=== PATIENT | male | born 1970 | race Two or more races ===

== ENCOUNTER 2024-10-10 01:22 | Emergency (ER) | payer OTHER ==
[~2024-10-10] VITALS: Ht 182.9 cm; Wt 136.1 kg
[2024-10-10] MEDS ORDERED: KETOROLAC TROMETHAMINE 30 MG VIAL IV STA (03:56)
[2024-10-10] MEDS ORDERED: CLINDAMYCIN PHOSPHATE 150 MG/ML (900mg) IV STA (03:57)
[2024-10-10] MEDS ORDERED: FLUMAZENIL 0.5 MG/5 ML ML IV STA (04:10)
[2024-10-10] MEDS ORDERED: NALOXONE HCL 0.4 MG/ML AMPUL IV STA (04:10)
[2024-10-10 04:48] LABS: BILIRUBIN TOTAL 3.88 mg/dL (0.3-1.2); CALCIUM 8.9 mg/dL (8.5-10.1); CREATININE SERUM 0.99 mg/dL (0.70-1.30); GFR 79.38; GLOBULINA 4.5 G/DL (2.4-3.5); POTASSIUM 3.42 mEq/L (3.5-5.1); TOTAL PROTEIN 7.5 gm/dL (6.4-8.2)
[2024-10-10 05:10] LABS: HEMATOCRIT 38.9 % (39.0-48.0); HEMOGLOBIN 13.9 g/dL (13-16.00); MEAN CORPUSCULAR HEMOGLOBIN 30.8 pg (27.00-32.0); MEAN CORPUSCULAR HGB CONC 35.8 g/dl (32.0-36.0); RED BLOOD COUNT 4.52 M/uL (4.00-6.00); RED CELL DISTRIBUTION WIDTH 15.9 % (11.5-14.5)
[2024-10-10 05:26] LABS: PLATELET COUNT 82 K/uL (150-450)
[2024-10-10 06:11] LABS: ERYTHROCYTE SEDIMENTATION RATE 38 mm/hr
[2024-10-10 06:24] LABS: COCAINE POSITIVE (NEGATIVE); METHADONE NEGATIVE (NEGATIVE); OPIATES POSITIVE (NEGATIVE); THC ( Cannabinoids) NEGATIVE (NEGATIVE)
== END 2024-10-10 13:13 | disposition home or self-care (01) ==
LOC: ER 01:24
DX: L03.116 Cellulitis of left lower limb (principal); L03.115 Cellulitis of right lower limb

== ENCOUNTER 2024-10-13 04:06 | Emergency (ER) | payer BC ==
[~2024-10-13] VITALS: Ht 182.9 cm; Wt 108.0 kg
[2024-10-13] MEDS ORDERED: KETOROLAC TROMETHAMINE 30 MG VIAL IV STA (06:30)
[2024-10-13] MEDS ORDERED: CLINDAMYCIN PHOSPHATE 150 MG/ML (900mg) IV STA (06:31)
[2024-10-13] MEDS ORDERED: OxyCODONE HCL/APAP UD (PERCOCET) PO STA (06:31)
[2024-10-13 08:20] LABS: HEMATOCRIT 35.2 % (39.0-48.0); HEMOGLOBIN 12.2 g/dL (13-16.00); MEAN CELL VOLUME 85.1 fL (80.0-100.00); MEAN CORPUSCULAR HEMOGLOBIN 29.5 pg (27.00-32.0); MEAN CORPUSCULAR HGB CONC 34.7 g/dl (32.0-36.0); RED BLOOD COUNT 4.14 M/uL (4.00-6.00); RED CELL DISTRIBUTION WIDTH 15.5 % (11.5-14.5)
[2024-10-13 08:33] LABS: CALCIUM 8.5 mg/dL (8.5-10.1); CREATININE SERUM 0.66 mg/dL (0.70-1.30); GFR 126.74; POTASSIUM 3.46 mEq/L (3.5-5.1)
[2024-10-13 08:40] LABS: ERYTHROCYTE SEDIMENTATION RATE 35 mm/hr
[2024-10-13 09:42] LABS: PLATELET COUNT 61 K/uL (150-450)
[2024-10-14] MEDS ORDERED: NADOLOL20 MG PO (23:50)
[2024-10-14] MEDS ORDERED: CARVEDILOL3.125 M1 PO (23:50)
[2024-10-14] MEDS ORDERED: LORAZEPAM0.5 MG PO (23:51)
== END 2024-10-13 10:19 | disposition home or self-care (01) ==
LOC: ER 04:06
DX: L03.116 Cellulitis of left lower limb (principal)

== ENCOUNTER 2024-10-14 23:11 | Inpatient (IN) | payer BC ==
[~2024-10-14] VITALS: Ht 152.4 cm; Wt 103.4 kg
[2024-10-14] MEDS ORDERED: CARVEDILOL3.125 M1 PO (23:50)
[2024-10-14] MEDS ORDERED: NADOLOL20 MG PO (23:50)
[2024-10-14] MEDS ORDERED: LORAZEPAM0.5 MG PO (23:51)
[2024-10-15] MEDS ORDERED: KETOROLAC TROMETHAMINE 30 MG VIAL IV STA (03:52)
[2024-10-15] MEDS ORDERED: CEFTRIAXONE SODIUM 2,000 MG VIAL IV STA (03:52)
[2024-10-15 05:07] LABS: URINE APPEARANCE Clear; URINE BILIRRUBIN Negative (NEGATIVE); URINE BLOOD Negative; URINE COLOR Dark Yellow; URINE GLUCOSE Negative (NEGATIVE); URINE KETONE Negative (NEGATIVE); URINE LEUKOCYTE Negative; URINE NITRATE Negative; URINE PROTEIN Negative (NEGATIVE)
[2024-10-15 05:11] LABS: URINE BACTERIA 7.5 uL (0.0-1933); URINE EPITHELIAL CELLS 4.7 uL (0.0-38.8); URINE RBC 9.3 uL (0.0-20.8); URINE WBC 3.2 uL (0.0-23.2)
[2024-10-15 05:21] LABS: URINE CAST 0.15 uL (0.0-1.40)
[2024-10-15 05:26] LABS: HEMATOCRIT 38.8 % (39.0-48.0); HEMOGLOBIN 13.7 g/dL (13-16.00); MEAN CELL VOLUME 85.1 fL (80.0-100.00); MEAN CORPUSCULAR HEMOGLOBIN 30.1 pg (27.00-32.0); MEAN CORPUSCULAR HGB CONC 35.4 g/dl (32.0-36.0); PLATELET COUNT 103 K/uL (150-450); RED BLOOD COUNT 4.55 M/uL (4.00-6.00); RED CELL DISTRIBUTION WIDTH 15.1 % (11.5-14.5)
[2024-10-15 05:41] LABS: INR 1.19; PARTIAL THROMBOPLASTIN TIME 32.2 SECONDS (22.0-34.0); PROTHROMBIN TIME 12.8 SECONDS (9.0-11.5)
[2024-10-15 05:45] LABS: BILIRUBIN TOTAL 2.02 mg/dL (0.3-1.2); CALCIUM 8.8 mg/dL (8.5-10.1); CREATININE SERUM 0.83 mg/dL (0.70-1.30); GFR 97.29; GLOBULINA 5.2 G/DL (2.4-3.5); TOTAL PROTEIN 8.2 gm/dL (6.4-8.2)
[2024-10-15 05:48] LABS: POTASSIUM 2.73 mEq/L (3.5-5.1)
[2024-10-15 08:41] VITALS: BP 109/71
[2024-10-15] MEDS ORDERED: CEFTRIAXONE SODIUM 2,000 MG in 0.9 % SODIUM CHLORIDE 100 ML IV SCH (10:25)
[2024-10-15] MEDS ORDERED: PANTOPRAZOLE SODIUM 40 MG/VIAL VIAL IV SCH (10:25)
[2024-10-15] MEDS ORDERED: CARVEDILOL 3.125 MG TABLET PO SCH (10:27)
[2024-10-15] MEDS ORDERED: 0.9 % SODIUM CHLORIDE 1,000 ML IV SCH (10:30)
[2024-10-15] MEDS ORDERED: POTASSIUM CHLORIDE IN WATER 100 ML IV NR (10:30)
[2024-10-15] MEDS ORDERED: ACETAMINOPHEN 500 MG GEL..CAP PO PRN (10:30)
[2024-10-15] MEDS ORDERED: MORPHINE SULFATE 2 MG/ML CARTRIDGE IV PRN (10:30)
[2024-10-15 12:37] LABS: ALBUMIN 2.8 gm/dL (3.4-5.0); BILIRUBIN TOTAL 1.61 mg/dL (0.3-1.2); BILIRUBIN,CONJUGATED 1.02 mg/dL (0.0-0.2); BILIRUBIN,UNCONJUGATED 0.59 mg/dL (0.0-0.6); TOTAL PROTEIN 7.3 gm/dL (6.4-8.2)
[2024-10-15 12:39] LABS: C-REACTIVE PROTEIN 2.98 MG/DL (0.00-0.29)
[2024-10-15 17:44] VITALS: BP 102/71
[2024-10-15 17:45] VITALS: BP 102/71
[2024-10-16 02:28] VITALS: BP 101/60
[2024-10-16 05:19] LABS: ALBUMIN 2.2 gm/dL (3.4-5.0); BILIRUBIN TOTAL 1.16 mg/dL (0.3-1.2); CALCIUM 7.8 mg/dL (8.5-10.1); CREATININE SERUM 0.75 mg/dL (0.70-1.30); GFR 109.36; GLOBULINA 3.6 G/DL (2.4-3.5); POTASSIUM 3.15 mEq/L (3.5-5.1); TOTAL PROTEIN 5.8 gm/dL (6.4-8.2)
[2024-10-16 08:31] VITALS: BP 95/50
[2024-10-16] MEDS ORDERED: MAGNESIUM SULFATE IN WATER 50 ML IV NR (12:15)
[2024-10-16] MEDS ORDERED: LACTULOSE 20 G/30 ML BLIST.PACK PO SCH (13:00)
[2024-10-16] MEDS ORDERED: POTASSIUM CHLORIDE IN WATER 40 MEQ/100 ML PIGGYBAG IV SCH (13:00)
[2024-10-16] MEDS ORDERED: DOXYCYCLINE HYCLATE 100 MG in 0.9 % SODIUM CHLORIDE 250 ML IV SCH (13:08)
[2024-10-16] MEDS ORDERED: SPIRONOLACTONE 50 MG TABLET PO SCH (13:09)
[2024-10-16 17:13] VITALS: BP 110/65
[2024-10-17 03:05] VITALS: BP 136/84; O2SAT 95
[2024-10-17 08:27] LABS: BILIRUBIN TOTAL 1.12 mg/dL (0.3-1.2); CALCIUM 7.6 mg/dL (8.5-10.1); CREATININE SERUM 0.57 mg/dL (0.70-1.30); GFR 150.11; GLOBULINA 3.6 G/DL (2.4-3.5); POTASSIUM 4.61 mEq/L (3.5-5.1); TOTAL PROTEIN 5.6 gm/dL (6.4-8.2)
[2024-10-17 09:19] VITALS: BP 116/66; O2SAT 97
[2024-10-17 16:03] VITALS: BP 116/76; O2SAT 94
[2024-10-18 09:08] VITALS: BP 101/73; O2SAT 97
[2024-10-18 16:16] VITALS: BP 101/66; O2SAT 97
[2024-10-19 00:30] VITALS: BP 108/68; O2SAT 95
[2024-10-19 06:19] LABS: HEMOGLOBIN 11.8 g/dL (13-16.00); MEAN CELL VOLUME 84.8 fL (80.0-100.00); MEAN CORPUSCULAR HEMOGLOBIN 30.3 pg (27.00-32.0); MEAN CORPUSCULAR HGB CONC 35.8 g/dl (32.0-36.0); RED BLOOD COUNT 3.89 M/uL (4.00-6.00); RED CELL DISTRIBUTION WIDTH 15.7 % (11.5-14.5)
[2024-10-19 06:53] LABS: ALBUMIN 2.2 gm/dL (3.4-5.0); BILIRUBIN TOTAL 1.53 mg/dL (0.3-1.2); CALCIUM 8.3 mg/dL (8.5-10.1); CREATININE SERUM 0.53 mg/dL (0.70-1.30); GFR 163.26; GLOBULINA 4.5 G/DL (2.4-3.5); POTASSIUM 4.24 mEq/L (3.5-5.1); TOTAL PROTEIN 6.7 gm/dL (6.4-8.2)
[2024-10-19 07:44] LABS: PLATELET COUNT 70 K/uL (150-450)
[2024-10-19 08:19] VITALS: BP 103/50; O2SAT 97
[2024-10-19 17:07] VITALS: BP 102/63; O2SAT 98
[2024-10-19] MEDS ORDERED: DOXYCYCLINE HYCLATE 100 MG CAPSULE PO SCH (21:00)
== END 2024-10-19 22:46 | disposition left against medical advice (07) | DRG 603 ==
LOC: ER 23:13 → MEDI 10-15 11:12 → SEC-K 10-15 11:12 → MEDI 10-15 13:10
PROVIDERS: General Practice; ADMIT Internal Medicine; ATTEND Internal Medicine
PROC: BL41ZZZ Ultrasonography of Lower Extremity Connective Tissue (ICD-10-PCS; principal; 2024-10-16)
PROC: B246ZZZ Ultrasonography of Right and Left Heart (ICD-10-PCS; 2024-10-19)
DX: L03.116 Cellulitis of left lower limb (principal); M70.42 Prepatellar bursitis, left knee; D72.819 Decreased white blood cell count, unspecified; K70.30 Alcoholic cirrhosis of liver without ascites; Z95.2 Presence of prosthetic heart valve